=== PATIENT | female | born 1990 | race Caucasian/White ===

== ENCOUNTER 2020-04-04 07:37 | Outpatient (REF) | payer OTHER, SELFPAY | END 2020-04-04 07:38 | disposition home or self-care (01) | LOC: HO.LAB 07:37 | PROVIDERS: Visit Provider Internal Medicine | DX: Z20.828 Contact with and (suspected) exposure to other viral communicable diseases (principal) | CPT/HCPCS: C9803; U0003 ==

== ENCOUNTER 2020-12-07 10:54 | Outpatient (REF) | payer OTHER, SELFPAY | END 2020-12-07 10:55 | disposition home or self-care (01) | LOC: HO.LAB 10:54 | PROVIDERS: PCP Nurse Practitioner Family; Visit Provider Internal Medicine | DX: Z20.822 Contact with and (suspected) exposure to COVID-19 (principal) | CPT/HCPCS: C9803; U0003; U0005 ==

== ENCOUNTER 2024-11-24 19:52 | Emergency (ER) | payer OTHER, SELFPAY ==
[2024-11-24 20:15] VITALS: BP 153/102; PULSE 90; RESP 20; TEMP 36.6; O2SAT 97; BMI 40.9
--- NOTE | 2024-11-24 20:17 | ED.GENADULT ---
HPI - General Adult General Chief complaint: General Medical Stated complaint: dizziness, sharp pain behind left yazidism, lip swel Time Seen by Provider: 11/25/24 01:21 Source: patient Mode of arrival: ambulatory Limitations: no limitations History of Present Illness ED Provider: Dr. Trang Gates HPI narrative: 34-year-old female with a history of hypertension presenting with left eyelid twitching, left sided headache ongoing for the last 3 days. Describes a throbbing sensation in the left side of her face that has been off and on. Dizziness associated with position change particularly from lying flat to sitting up. Denies dizziness when she stands. No falls. No head trauma. Denies associated fever, sinus congestion, ear pain, cough or cold-type symptoms, known sick contacts or travel. Denies nausea or vomiting. No bowel or bladder complaints. Related Data Previous Rx's ?Medication ?Instructions ?Recorded [id number] 1 cap PO TID PRN headache #10 caps 11/25/24 50 mg-300 mg-40 mg capsule (Fioricet) meclizine 25 mg tablet 25 mg PO TID PRN dizziness #20 tabs 11/25/24 Allergies Allergy/AdvReac Type Severity Reaction Status Date / Time cefaclor ([facility] Allergy Unknown ANAPHYLAXIS Verified 11/24/24 20:19 Review of Systems Review of Systems: As per HPI, full review of systems performed and negative but for the above mentioned pertinent positives and negatives. [facility] Past Medical History Attestation statement: The following information was validated with the patient. [facility] Narrative: Hypertension, autoimmune disorder, denies alcohol or tobacco use Social History Social History Smoked in Last 30 Days: No Use of substances other than those prescribed or required for medical reasons: No Advance Directives: No Advance Directives Information Provided: No Do you have a plan to hurt others: No Plan Physical Exam ED Exam Exam: GENERAL: Well-Appearing, conversant, no acute distress. SKIN: Normal skin color for ethnicity, warm, dry, no rashes noted. HEENT: Normocephalic, atraumatic, no stridor, posterior oropharynx nonerythematous, dentition intact, EOMI, TMs clear, no tenderness to palpation overlying the left yazidism. NECK: Soft, supple, full ROM, midline structures nontender, no step-offs, no deformities, no lymphadenopathy. CHEST: Heart regular rate and rhythm, no murmurs, symmetric chest rise and fall. PULMONARY: Clear to auscultation bilaterally, no labored breathing, no wheezes/rhales/rhonchi. ABDOMINAL: Soft, nondistended, nontender, positive bowel sounds in all quadrants. : Deferred. MUSCULOSKELETAL: Normal tone, full range of motion, no deformities, no peripheral edema. NEURO: Alert and oriented x3, CN II through XII intact, equal strength and sensation bilateral upper and lower extremities, no focal neurologic deficits. PSYCHIATRIC: Normal affect, fluid speech, good eye contact and appropriate demeanor. Vital Signs: Vital Signs - 24 hr 11/24/24 20:15 11/25/24 00:45 11/25/24 01:51 Temperature 97.9 F 97.9 F Pulse Rate 90 73 82 Respiratory Rate 20 16 17 Blood Pressure 153/102 H 130/87 126/87 Pulse Oximetry 97 98 99 Oxygen Delivery Method Room Air Room Air Room Air 11/25/24 05:33 11/25/24 05:54 Temperature 98.1 F Pulse Rate 88 88 Respiratory Rate 99 H 17 Blood Pressure 111/70 111/72 Pulse Oximetry 99 98 Oxygen Delivery Method Room Air Room Air BMI result Body Mass Index 40.9 Course Course Course Narrative: Rapid medical examination performed in triage by Rosario Haskins PA-C. Patient is a 34 year old assigned female at presenting to the emergency department with dizziness. Detailed physical exam and review of systems are deferred to the english horn player. EKG, labs, and swabs ordered. Patient placed back in the waiting room pending room availability and results. Medications Administered Discontinued Medications Generic Name Dose Route Start Last Admin Trade Name Freq PRN Reason Stop Dose Admin Acetaminophen/Butalbital/Caffeine 1 tab 11/25/24 05:46 11/25/24 05:53 Butalb/Acetamin/Caff 50/325/40 Tablet PO 11/25/24 05:47 1 tab ONCE ONE Administration Diazepam 2 mg 11/25/24 01:34 11/25/24 01:51 Diazepam 2 Mg Tablet PO 11/25/24 01:35 2 mg ONCE ONE Administration Ibuprofen 600 mg 11/25/24 01:34 11/25/24 01:50 Ibuprofen 600 Mg Tablet PO 11/25/24 01:35 600 mg ONCE ONE Administration Meclizine HCl 50 mg 11/25/24 05:46 11/25/24 05:53 Meclizine Hcl 25 Mg Tablet PO 11/25/24 05:47 50 mg ONCE ONE Administration Medical Decision Making Medical Decision Making [facility] Narrative: Patient presents with a chief complaint of headache. The differential diagnosis on this patient includes but is not limited to migraine headache, tension headache, cluster headache, subarachnoid hemorrhage, dissection, venous thrombosis, meningitis, sinusitis, bleeding or tumor. Based on history and physical exam, appropriate work-up was initiated. Medicated with ibuprofen and Valium for headache and vertigo. Patient is nontoxic appearing, normal neurologic exam. Suspect vertigo and early URI symptoms which I discussed with her at length. Her eyelid is actively twitching and it is bothering her. This has been an ongoing issue for months but she does not take any medications for it. Her primary care doctor told her that it would go away on its own. We will medicate with Valium to see if we can get her to relax to the point where it will stop twitching. Differential Diagnosis Differential Diagnoses: The differential diagnosis associated with the presentation includes (As above) Admission/Observation Consideration of admission/observation: Escalation of care including admission/observation considered Lab Data [facility] Lab Attestation statement: I reviewed the patient's lab results. 11/24/24 20:41 11/24/24 20:41 Labs: Lab Results 11/24/24 Range/Units 20:41 WBC 8.5 (4.8-10.8) X10*3/uL RBC 4.73 (4.20-5.50) X10*6/uL Hgb 13.0 (12.0-16.0) g/dl Hct 38.8 (37.0-47.0) % MCV 82.0 (80.0-98.0) fL MCH 27.5 (27.0-33.0) pg MCHC 33.5 (31.0-35.0) g/dl RDW 13.2 (11.0-16.0) % Plt Count 315 (160-400) X10*3/uL MPV 9.1 L (9.4-12.3) fL Immature Gran % (Auto) 0.4 (0.0-0.4) % Neut % (Auto) 52.3 (45-73) % Lymph % (Auto) 39.1 (20-40) % [place] % (Auto) 5.4 (2-11) % Eos % (Auto) 2.4 (0-4) % Baso % (Auto) 0.4 (0-2) % Lymph # (Auto) 3.3 (1.2-4.9) X10*3/uL [place] # (Auto) 0.5 (0.1-1.2) X10*3/uL Eos # (Auto) 0.2 (0.0-0.4) X10*3/uL Baso # (Auto) 0.0 (0.0-0.2) X10*3/uL Abs Immat Gran (auto) 0.03 (0.00-0.03) X10*3/uL Absolute Neuts (auto) 4.5 (2.0-8.3) x10*3/uL Absolute Nucleated RBC 0.000 (0.0-0.012) X10*3/uL Nucleated RBC % (auto) 0.0 (0.0-0.2) /100WBC Sodium 142 (135-145) mmol/L Potassium 3.7 (3.3-5.1) mmol/L Chloride 108 (96-108) mmol/L Carbon Dioxide 25 (22-29) mmol/L Anion Gap 13 (12-20) BUN 12 (9-16) mg/dL Creatinine 0.81 (0.5-1.4) mg/dL Estim Creat Clear Calc 126.0 Estimated GFR > 60 Random Glucose 104 (60-115) mg/dL Calcium 9.5 (8.4-10.2) mg/dL Magnesium 2.2 (1.6-2.6) mg/dL Total Bilirubin 0.3 (0.0-1.0) mg/dL AST 37 H (5-31) U/L ALT 43 H (0-31) U/L Alkaline Phosphatase 58 (39-117) U/L Troponin I High Sens < 2.7 (<3.5-17.0) ng/L Total Protein 7.2 (6.5-8.0) g/dL Albumin 4.4 (3.5-5.0) g/dL Influenza Type A (PCR) NEGATIVE (Negative) Influenza Type B (PCR) NEGATIVE (Negative) RSV RNA Qual (PCR) NEGATIVE (Negative) SARS-CoV-2 RNA (RT-PCR) NEGATIVE (Negative) Chronic Conditions Patient?s care impacted by: Hypertension Discharge Plan Discharge Clinical Impression: Benign positional vertigo, Migraine headache Patient Disposition: Home, Self-Care Instructions: Migraine Headache (ED), Vertigo (ED) Additional Instructions: Use meclizine as needed for dizziness, Fioricet as needed for migraine headaches. Return to the emergency department with any new or worsening symptoms including: Fevers greater than 100?, neck stiffness, rashes on your lower extremities, numbness/tingling/weakness of the extremities, word-finding issues, facial droop, any new symptom that concerns you. Call 911 with any medical emergency. Prescriptions: New meclizine 25 mg tablet 25 mg PO TID PRN (Reason: dizziness) Qty: 20 0RF [id number] [Fioricet] 50-300-40 mg capsule 1 cap PO TID PRN (Reason: headache) Qty: 10 0RF Print Language: Lao
--- NOTE | 2024-11-24 20:18 | ECG_ITS ---
Test Reason : DIZZY Blood Pressure : */* mmHG Vent. Rate : 78 BPM Atrial Rate : 78 BPM P-R Int : 146 ms QRS Dur : 86 ms QT Int : 394 ms P-R-T Axes : 24 23 16 degrees QTcB Int : 449 ms Normal sinus rhythm Normal ECG No previous ECGs available Referred By: Rosario Haskins Electronically Signed By: Mathieu Mauro
[2024-11-24 20:45] LABS: MANUAL DIFF FLAG NO
[2024-11-24 20:46] LABS: Hematocrit 38.8 % (37.0-47.0); Hemoglobin 13.0 g/dl (12.0-16.0); Imm Gran Abs Auto 0.03 X10*3/uL (0.00-0.03); Imm Gran Pct Auto 0.4 % (0.0-0.4); Lymphocytes Absolute Auto 3.3 X10*3/uL (1.2-4.9); Mean Corpuscular HGB Conc 33.5 g/dl (31.0-35.0); Mean Corpuscular Hemoglobin 27.5 pg (27.0-33.0); Mean Corpuscular Volume 82.0 fL (80.0-98.0); NRBC Abs Auto 0.000 X10*3/uL (0.0-0.012); NRBC Pct Auto 0.0 /100WBC (0.0-0.2); Platelet Count 315 X10*3/uL (160-400); Red Blood Count 4.73 X10*6/uL (4.20-5.50); White Blood Count 8.5 X10*3/uL (4.8-10.8)
[2024-11-24 21:00] LABS: Alanine Aminotransferase 43 U/L (0-31); Albumin Level 4.4 g/dL (3.5-5.0); Alkaline Phosphatase 58 U/L (39-117); Anion Gap 13 (12-20); Aspartate Amino Transferase 37 U/L (5-31); Blood Urea Nitrogen 12 mg/dL (9-16); Calcium 9.5 mg/dL (8.4-10.2); Carbon Dioxide 25 mmol/L (22-29); Chloride 108 mmol/L (96-108); Creatinine Clr Calc Pharmacy 126.0; Estimated Glomerular Filt Rate > 60; Magnesium 2.2 mg/dL (1.6-2.6); Potassium 3.7 mmol/L (3.3-5.1); Sodium 142 mmol/L (135-145); Total Protein 7.2 g/dL (6.5-8.0)
[2024-11-24 21:08] LABS: Troponin-I High Sensitivity < 2.7 ng/L (<3.5-17.0)
[2024-11-24 21:24] LABS: Resp Syncy Virus RNA Qual PCR NEGATIVE (Negative); SARS COV2 PCR INHOUSE NEGATIVE (Negative)
[2024-11-25 00:45] VITALS: BP 130/87; PULSE 73; RESP 16; TEMP 36.6; O2SAT 98
[2024-11-25 01:51] VITALS: BP 126/87; PULSE 82; RESP 17; O2SAT 99
[2024-11-25 05:33] VITALS: BP 111/70; PULSE 88; RESP 99; O2SAT 99
[2024-11-25] MEDS: Butalb/Acetamin/Caff 50/325/40 TABLET 1 TAB PO (05:53)
[2024-11-25 05:54] VITALS: BP 111/72; PULSE 88; RESP 17; TEMP 36.7; O2SAT 98
[2024-11-25 07:58] VITALS: BP 121/75; PULSE 78; RESP 18; TEMP 36.8; O2SAT 97
[2024-11-25 08:23] VITALS: BP 121/75; PULSE 78; RESP 18; TEMP 36.8; O2SAT 97
== END 2024-11-25 08:24 | disposition home or self-care (01) ==
PROVIDERS: Physician Assistant Medical; Emergency Provider Emergency Medicine; PCP Nurse Practitioner Family
DX: H81.12 Benign paroxysmal vertigo, left ear (principal); G43.909 Migraine, unspecified, not intractable, without status migrainosus; I10 Essential (primary) hypertension
CPT/HCPCS: 80053; 83735; 84484; 85025; 87637; 93005; 99283; 99284

== ENCOUNTER → 2024-11-24 20:18 | Outpatient (BNV) | payer OTHER, SELFPAY | PROVIDERS: Emergency Provider Emergency Medicine; PCP Nurse Practitioner Family; Visit Provider Internal Medicine Cardiovascular Disease | DX: R42 Dizziness and giddiness (principal) | CPT/HCPCS: 93010 ==